=== PATIENT | female | born 1995 | race Two or more races ===

== ENCOUNTER 2018-01-23 02:04 | Emergency (ER) | payer MEDICAID ==
[~2018-01-23] VITALS: Ht 160 cm; Wt 53.3 kg
[2018-01-23 02:06] VITALS: BP 124/85
== END 2018-01-23 02:55 | disposition home or self-care (01) ==
LOC: ED 02:40
DX: L03.011 Cellulitis of right finger (principal); X58.XXXA Exposure to other specified factors, initial encounter; Y93.89 Activity, other specified; Y99.8 Other external cause status; Y92.009 Unspecified place in unspecified non-institutional (private) residence as the place of occurrence of the external cause
CPT/HCPCS: 10060; 99283